=== PATIENT | male | born 1985 | race American Indian/Alaskan Native ===

== ENCOUNTER 2019-06-20 11:33 | Emergency (ER) | payer SELFPAY ==
[2019-06-20 15:53] VITALS: BP 162/97
--- NOTE | 2019-06-20 16:13 | Emergency Department Report ---
Chief Complaint: Skin Rash Stated Complaint: IMPETIGO Time Seen by Provider: 06/20/19 15:58 - HPI History of Present Illness: 34-year-old -[place] male presents to the emergency room stating he has impetigo and is spreading. Patient reported to me that he did not complete all of his Keflex because he was drinking and now has misplaces bottle and comes in now wanting a prescription for antibiotics. Patient denies any fever or chills no nausea no vomiting. - Exam Vital Signs: Vital Signs 06/20/19 06/20/19 12:25 15:53 Temperature 98.2 F 98.6 F Pulse Rate 71 57 L Respiratory 16 18 Rate Blood Pressure 147/95 Blood Pressure 162/97 [Left] O2 Sat by Pulse 100 100 Oximetry Physical Exam: Patient's alert and oriented 3. Patient does ambulate without difficulty. Speaking without difficulty. Patient has multiple crusted lesions on hands. MSE screening note: Focused history and physical exam performed. Due to findings the following was ordered: ED Disposition for MSE Clinical Impression: Rash and nonspecific skin eruption Disposition: MED SCREENING EXAM-LEFT Is pt being admited?: No Does the pt Need Aspirin: No Condition: Stable Instructions: Impetigo (ED) Referrals: [facility] [Outside] - 3-5 Days [facility] [Outside] - 3-5 Days JASON CHAPMAN MD [Staff Physician] - 3-5 Days
== END 2019-06-20 16:00 | disposition left against medical advice (07) ==
LOC: ED 11:33
DX: R21 Rash and other nonspecific skin eruption (principal); L01.00 Impetigo, unspecified
CPT/HCPCS: 99281